=== PATIENT | male | born 1935 | race Caucasian/White ===

== ENCOUNTER 2021-07-14 09:37 | Inpatient (IN) | payer MEDICARE, OTHER ==
[~2021-07-14] VITALS: Ht 175.3 cm; Wt 82.3 kg
[2021-07-14 10:04] LABS: COVID AG,FIA SOURCE NASAL SWAB
[2021-07-14 10:10] LABS: BASOPHILS % (AUTO) 0.8 % (0.0-2.0); HEMATOCRIT 44.8 % (41-53); HEMOGLOBIN 15.1 g/dL (13.5-17.5); LYMPHOCYTES # (AUTO) 1.6 K/uL (1.0-4.8); LYMPHOCYTES % (AUTO) 22.5 % (22.0-44.0); MEAN CORPUSCULAR HEMOGLOBIN 28.9 pg (26.0-34.0); MEAN CORPUSCULAR HGB CONC 33.6 G/dL (31.0-37.0); MEAN CORPUSCULAR VOLUME 86 fL (80-100); MONOCYTES # (AUTO) 0.4 K/uL (0.1-1.0); MONOCYTES % (AUTO) 5.1 % (2.0-9.0); NEUTROPHILS # (AUTO) 4.9 K/uL (1.8-7.7); NEUTROPHILS % (AUTO) 69.6 % (40.0-70.0); PLATELET COUNT (AUTO) 311 K/uL (150-450); RED BLOOD CELL COUNT(AUTO) 5.23 MIL/uL (4.50-5.90); RED CELL DISTRIBUTION WIDTH 15.5 % (11.5-14.5)
[2021-07-14 10:17] LABS: ANION GAP 13 mmol/L (8-16); CALCIUM, TOTAL 9.1 mg/dL (8.8-10.5); CARBON DIOXIDE 22 mmol/L (22-29); CHLORIDE 101 mmol/L (98-107); CREATININE 1.16 mg/dL (0.60-1.30); GLOMERULAR FILTR. RATE CALC 59 mL/min (>60); GLUCOSE,RANDOM 215 mg/dL (70-110); POTASSIUM 3.6 mmol/L (3.5-5.1); SODIUM SERUM 136 mmol/L (136-145); UREA NITROGEN, BLOOD 25 mg/dL (7-18)
[2021-07-14 10:32] LABS: ALANINE AMINOTRANSFERASE 18 U/L (12-78); ALBUMIN 4.1 g/dL (3.4-5.0); ALKALINE PHOSPHATASE 72 U/L (46-116); ASPARTATE AMINOTRANSFERASE 17 U/L (15-37); BILIRUBIN,TOTAL 0.6 mg/dL (0.1-1.0); FREE T4 (FREE THYROXINE) 1.26 ng/dL (0.76-1.46); THYROID STIMULATING HORMONE 3.45 uIU/mL (0.36-3.74); TOTAL PROTEIN, SERUM 8.3 g/dL (6.4-8.2)
[2021-07-14 11:14] LABS: APPEARANCE,URINE CLEAR (CLEAR); BILIRUBIN,URINE NEGATIVE (NEGATIVE); GLUCOSE, URINE (UA) >=1000 mg/dL (NEGATIVE); KETONES,URINE 15 mg/dL (NEGATIVE); LEUKOCYTE ESTERASE ,URINE NEGATIVE (NEGATIVE); NITRATE,URINE NEGATIVE (NEGATIVE); OCCULT BLOOD,URINE NEGATIVE (NEGATIVE); PROTEIN,URINE NEGATIVE (NEGATIVE); UROBILINOGEN,URINE 0.2 mg/dL (<=1.0)
[2021-07-14 11:20] LABS: AMPHET/METH SCREEN,URINE NEGATIVE (NEGATIVE); BARBITURATE SCREEN, URINE NEGATIVE (NEGATIVE); BENZODIAZEPINES SCREEN,URINE NEGATIVE (NEGATIVE); CANNABINOID SCREEN,URINE NEGATIVE (NEGATIVE); COCAINE SCREEN,URINE NEGATIVE (NEGATIVE); METHADONE SCREEN, URINE NEGATIVE (NEGATIVE); OPIATE SCREEN,URINE NEGATIVE (NEGATIVE)
[2021-07-14 11:26] LABS: PHENCYCLIDINE SCREEN,URINE NEGATIVE (NEGATIVE)
[2021-07-14 11:38] LABS: BACTERIA,URINE None Seen /HPF (None Seen); RBC,URINE None Seen /HPF (0-2); SQUAMOUS EPITHELIAL CELL,UR Few /LPF (None Seen); WBC,URINE 0-2 /HPF (0-5)
[2021-07-14] MEDS ORDERED: ZOLPIDEM TARTRATE 10 MG TABLET PO PRN (15:15)
[2021-07-14] MEDS ORDERED: GuaiFENesin/D-METHORPHAN [SUGAR-FREE] 200-20MG/10 ML SYRUP UDCUP PO PRN ×2 (15:15→15:30)
[2021-07-14] MEDS ORDERED: TUBERCULIN, PURIFIED PROTEIN DERIVATIVE 5 TU/0.1 ML SYRINGE ID ONE (15:15)
[2021-07-14] MEDS ORDERED: PROMETHAZINE HCL 25 MG TABLET PO PRN ×2 (15:15)
[2021-07-14] MEDS ORDERED: HydrOXYzine PAMOATE 50 MG CAPSULE PO PRN (15:15)
[2021-07-14] MEDS ORDERED: CYANOCOBALAMIN 1,000 MCG/ML VIAL IM ONE (15:30)
[2021-07-14] MEDS ORDERED: LOPERAMIDE HCL 2 MG CAPSULE PO PRN (15:30)
[2021-07-14] MEDS ORDERED: DEXTROSE 50%-WATER 25 GM/50 ML SYRINGE IVP PRN (17:45)
[2021-07-14] MEDS ORDERED: PNEUMOCOCCAL VACCINE POLYVALENT 0.5 ML VIAL [PPSV23] IM. ONE (17:45)
[2021-07-14] MEDS ORDERED: INFLUENZA VIRUS VACCINE QVS 2021-22 (6MO+)/PF 60 MCG/0.5 ML SYRINGE IM. ONE (17:45)
[2021-07-14 17:59] VITALS: BP 138/87
[2021-07-14 18:16] LABS: GLUCOMETER DEV NAME(LOC) 3E.C; GLUCOSE,POINT OF CARE 135 MG/DL (70-110)
[2021-07-14] MEDS: THIAMINE 100 MG TABLET PO SCH (18:27)
[2021-07-14] MEDS: LURASIDONE HCL 20 MG TABLET PO SCH (18:27)
[2021-07-14] MEDS: MELATONIN 5 MG TABLET PO SCH (20:56)
[2021-07-14] MEDS: HydrOXYzine PAMOATE 50 MG CAPSULE PO PRN (20:56)
[2021-07-14] MEDS ORDERED: THIAMINE 100 MG TABLET PO SCH (21:00)
[2021-07-14 21:06] LABS: GLUCOMETER DEV NAME(LOC) 3E.C; GLUCOSE,POINT OF CARE 226 MG/DL (70-110)
[2021-07-14] MEDS: INSULIN LISPRO 100 UNITS/ML SQ PRN (21:16)
[2021-07-15 06:07] LABS: GLUCOMETER DEV NAME(LOC) 3E.C; GLUCOSE,POINT OF CARE 150 MG/DL (70-110)
[2021-07-15] MEDS: INSULIN LISPRO 100 UNITS/ML SQ PRN ×3 (07:13→20:58)
[2021-07-15] MEDS: LORazepam 0.5 MG TABLET PO PRN (07:58)
[2021-07-15] MEDS: MULTIVITAMINS WITH MINERALS, THERAPEUTIC TABLET PO SCH (07:59)
[2021-07-15] MEDS: FOLIC ACID 1 MG TABLET PO SCH (08:00)
[2021-07-15] MEDS: LURASIDONE HCL 20 MG TABLET PO PRN (08:00)
[2021-07-15] MEDS: HydrOXYzine PAMOATE 50 MG CAPSULE PO PRN (08:00)
[2021-07-15] MEDS: OMEGA-3/DHA/EPA/FISH OIL 1,000 MG CAPSULE PO SCH (08:00)
[2021-07-15] MEDS: THIAMINE 100 MG TABLET PO SCH ×2 (08:00→16:43)
[2021-07-15] MEDS ORDERED: FOLIC ACID 1 MG TABLET PO SCH (09:00)
[2021-07-15] MEDS ORDERED: MULTIVITAMINS WITH MINERALS, THERAPEUTIC TABLET PO SCH (09:00)
[2021-07-15 09:21] LABS: HEMOGLOBIN A1C 8.3 % (3.8-5.6)
[2021-07-15 09:42] LABS: CHOL/HDL RATIO 2.9 (4.2-7.3); FREE T4 (FREE THYROXINE) 1.21 ng/dL (0.76-1.46); THYROID STIMULATING HORMONE 2.12 uIU/mL (0.36-3.74)
[2021-07-15] MEDS: FAMOTIDINE 20 MG TABLET PO SCH (10:14)
[2021-07-15] MEDS: TELMISARTAN 40 MG TABLET PO SCH (10:14)
[2021-07-15] MEDS: NIFEdipine 30 MG ER TABLET PO SCH (10:14)
[2021-07-15] MEDS: IBUPROFEN 800 MG TABLET PO PRN (12:01)
[2021-07-15 16:08] VITALS: BP 127/78
[2021-07-15] MEDS: LURASIDONE HCL 20 MG TABLET PO SCH (16:43)
[2021-07-15 17:01] LABS: GLUCOMETER DEV NAME(LOC) 3E.C; GLUCOSE,POINT OF CARE 260 MG/DL (70-110)
[2021-07-15] MEDS: MELATONIN 5 MG TABLET PO SCH (20:54)
[2021-07-15 21:16] LABS: GLUCOMETER DEV NAME(LOC) 3E.C; GLUCOSE,POINT OF CARE 191 MG/DL (70-110)
[2021-07-15] MEDS ORDERED: LURASIDONE HCL 40 MG TABLET PO PRN (23:15)
[2021-07-15] MEDS ORDERED: LURASIDONE HCL 20 MG TABLET PO PRN (23:15)
[2021-07-16 06:06] LABS: GLUCOMETER DEV NAME(LOC) 3E.C; GLUCOSE,POINT OF CARE 241 MG/DL (70-110)
[2021-07-16] MEDS: INSULIN LISPRO 100 UNITS/ML SQ PRN ×3 (07:01→16:31)
[2021-07-16 08:00] VITALS: BP 103/75
[2021-07-16] MEDS: LURASIDONE HCL 20 MG TABLET PO PRN (09:15)
[2021-07-16] MEDS: NIFEdipine 30 MG ER TABLET PO SCH (09:15)
[2021-07-16] MEDS: THIAMINE 100 MG TABLET PO SCH ×2 (09:15→16:20)
[2021-07-16] MEDS: HydrOXYzine PAMOATE 50 MG CAPSULE PO PRN (09:15)
[2021-07-16] MEDS: MULTIVITAMINS WITH MINERALS, THERAPEUTIC TABLET PO SCH (09:15)
[2021-07-16] MEDS: TELMISARTAN 40 MG TABLET PO SCH (09:15)
[2021-07-16] MEDS: OMEGA-3/DHA/EPA/FISH OIL 1,000 MG CAPSULE PO SCH (09:15)
[2021-07-16] MEDS: LORazepam 0.5 MG TABLET PO PRN (09:15)
[2021-07-16] MEDS: FOLIC ACID 1 MG TABLET PO SCH (09:15)
[2021-07-16] MEDS: IBUPROFEN 800 MG TABLET PO PRN (09:16)
[2021-07-16] MEDS: FAMOTIDINE 20 MG TABLET PO SCH (09:16)
[2021-07-16 11:51] LABS: GLUCOMETER DEV NAME(LOC) 3E.C; GLUCOSE,POINT OF CARE 230 MG/DL (70-110)
[2021-07-16 16:03] VITALS: BP 153/74
[2021-07-16] MEDS ORDERED: OMEG-108 PO (16:07)
[2021-07-16] MEDS ORDERED: LURA40TA2 PO (16:07)
[2021-07-16] MEDS ORDERED: MELA5TAB40 PO (16:07)
[2021-07-16 16:41] LABS: GLUCOMETER DEV NAME(LOC) 3E.C; GLUCOSE,POINT OF CARE 270 MG/DL (70-110)
[2021-07-16] MEDS ORDERED: LURASIDONE HCL 40 MG TABLET PO SCH (17:30)
== END 2021-07-16 18:22 | disposition home or self-care (01) | DRG 885 ==
LOC: EMS 09:37 → 3EC 15:12
PROVIDERS: ADMIT Psychiatry & Neurology Psychiatry; ATTEND Psychiatry & Neurology Psychiatry
DX: F25.9 Schizoaffective disorder, unspecified (principal); L03.90 Cellulitis, unspecified; E11.9 Type 2 diabetes mellitus without complications; E78.5 Hyperlipidemia, unspecified; F03.90 Unspecified dementia, unspecified severity, without behavioral disturbance, psychotic disturbance, mood disturbance, and anxiety; I10 Essential (primary) hypertension; Z20.822 Contact with and (suspected) exposure to COVID-19; Z63.9 Problem related to primary support group, unspecified; Z65.3 Problems related to other legal circumstances; Z88.0 Allergy status to penicillin; Z59.9 Problem related to housing and economic circumstances, unspecified; Z55.9 Problems related to education and literacy, unspecified
CPT/HCPCS: 80053; 80061; 81001; 82962; 83036; 84439; 84443; 85025; 86592; 90686; 90732; 99285; G0480; J3420; Q9967

== ENCOUNTER 2021-11-29 12:36 | Inpatient (IN) | payer OTHER ==
[~2021-11-29] VITALS: Ht 175.3 cm; Wt 82.7 kg
[~2021-11-29 12:36] MED LIST: LURA40TA2 PO; MELA5TAB40 PO; OMEG-108 PO
[2021-11-29 14:38] LABS: BASOPHILS % (AUTO) 0.7 % (0.0-2.0); EOSINOPHILS % (AUTO) 0.3 % (1.0-6.0); HEMATOCRIT 45.5 % (41-53); HEMOGLOBIN 14.9 g/dL (13.5-17.5); LYMPHOCYTES # (AUTO) 2.1 K/uL (1.0-4.8); LYMPHOCYTES % (AUTO) 33.5 % (22.0-44.0); MEAN CORPUSCULAR HEMOGLOBIN 28.5 pg (26.0-34.0); MEAN CORPUSCULAR HGB CONC 32.8 G/dL (31.0-37.0); MEAN CORPUSCULAR VOLUME 87 fL (80-100); MONOCYTES # (AUTO) 0.4 K/uL (0.1-1.0); MONOCYTES % (AUTO) 6.9 % (2.0-9.0); NEUTROPHILS # (AUTO) 3.6 K/uL (1.8-7.7); NEUTROPHILS % (AUTO) 58.6 % (40.0-70.0); PLATELET COUNT (AUTO) 224 K/uL (150-450); RED BLOOD CELL COUNT(AUTO) 5.24 MIL/uL (4.50-5.90); RED CELL DISTRIBUTION WIDTH 15.3 % (11.5-14.5)
[2021-11-29 14:39] LABS: COVID AG,FIA SOURCE NASOPHARYNGEAL
[2021-11-29 14:49] LABS: ANION GAP 14 mmol/L (8-16); CALCIUM, TOTAL 9.6 mg/dL (8.8-10.5); CARBON DIOXIDE 25 mmol/L (22-29); CHLORIDE 101 mmol/L (98-107); CREATININE 1.31 mg/dL (0.60-1.30); GLUCOSE,RANDOM 194 mg/dL (70-110); POTASSIUM 3.5 mmol/L (3.5-5.1); SODIUM SERUM 140 mmol/L (136-145); UREA NITROGEN, BLOOD 29 mg/dL (7-18)
[2021-11-29 14:51] LABS: GLOMERULAR FILTR. RATE CALC 52 mL/min (>60)
[2021-11-29 15:00] LABS: ALANINE AMINOTRANSFERASE 26 U/L (12-78); ALKALINE PHOSPHATASE 68 U/L (46-116); ASPARTATE AMINOTRANSFERASE 29 U/L (15-37); BILIRUBIN,TOTAL 0.6 mg/dL (0.1-1.0); THYROID STIMULATING HORMONE 1.33 uIU/mL (0.36-3.74); TOTAL PROTEIN, SERUM 8.2 g/dL (6.4-8.2)
[2021-11-29 16:59] LABS: APPEARANCE,URINE CLEAR (CLEAR); BILIRUBIN,URINE NEGATIVE (NEGATIVE); GLUCOSE, URINE (UA) >=1000 mg/dL (NEGATIVE); LEUKOCYTE ESTERASE ,URINE NEGATIVE (NEGATIVE); NITRATE,URINE NEGATIVE (NEGATIVE); OCCULT BLOOD,URINE TRACE (NEGATIVE); PROTEIN,URINE NEGATIVE (NEGATIVE); SPECIFIC GRAVITIY, URINE 1.027 (1.003-1.030); UROBILINOGEN,URINE <=1.0 mg/dL (<=1.0)
[2021-11-29 17:06] LABS: AMPHET/METH SCREEN,URINE NEGATIVE (NEGATIVE); BARBITURATE SCREEN, URINE NEGATIVE (NEGATIVE); BENZODIAZEPINES SCREEN,URINE NEGATIVE (NEGATIVE); CANNABINOID SCREEN,URINE NEGATIVE (NEGATIVE); COCAINE SCREEN,URINE NEGATIVE (NEGATIVE); METHADONE SCREEN, URINE NEGATIVE (NEGATIVE); OPIATE SCREEN,URINE NEGATIVE (NEGATIVE)
[2021-11-29 17:07] LABS: PHENCYCLIDINE SCREEN,URINE NEGATIVE (NEGATIVE)
[2021-11-29] MEDS ORDERED: PRAV40TA4 PO (17:26)
[2021-11-29] MEDS ORDERED: PIOG45TA64 PO (17:26)
[2021-11-29] MEDS ORDERED: NIFE30TA98 PO (17:26)
[2021-11-29] MEDS ORDERED: TELM40TA8 PO (17:26)
[2021-11-29] MEDS ORDERED: FAMO40TA7 PO (17:26)
[2021-11-29] MEDS ORDERED: QUET25TA36 PO (17:26)
[2021-11-29] MEDS ORDERED: 0.9% SODIUM CHLORIDE 10 ML SYRINGE IVP PRN (17:30)
[2021-11-29] MEDS ORDERED: ONDANSETRON HCL 4 MG/2 ML VIAL IVP PRN ×2 (17:30→22:00)
[2021-11-29] MEDS ORDERED: ACETAMINOPHEN 325 MG TABLET PO PRN ×2 (17:30→22:00)
[2021-11-29 17:35] LABS: BACTERIA,URINE Rare /HPF (None Seen); RBC,URINE 0-2 /HPF (0-2); SQUAMOUS EPITHELIAL CELL,UR Rare /LPF (None Seen); WBC,URINE 0-2 /HPF (0-5)
[2021-11-29] MEDS ORDERED: MAGNESIUM HYDROXIDE SUSPENSION 30 ML UDCUP PO PRN (22:00)
[2021-11-29] MEDS ORDERED: BISACODYL 10 MG RECTAL RECTAL SUPPOSITORY PR PRN (22:00)
[2021-11-29] MEDS ORDERED: HYDROCODONE/ACETAMINOPHEN 5-325 MG TABLET PO PRN (22:00)
[2021-11-29] MEDS ORDERED: MORPHINE SULFATE 2 MG/ML SYRINGE IVP PRN (22:00)
[2021-11-29] MEDS ORDERED: ALBUTEROL SULFATE 2.5 MG/0.5 ML NEB SOLUTION NEB PRN (22:00)
[2021-11-29] MEDS ORDERED: IPRATROPIUM BROMIDE 0.5 MG/2.5 ML NEB SOLUTION NEB PRN (22:00)
[2021-11-29] MEDS ORDERED: ZOLPIDEM TARTRATE 5 MG TABLET PO PRN (22:00)
[2021-11-29] MEDS ORDERED: HydrALAZINE HCL 20 MG/ML VIAL IVP PRN (22:15)
[2021-11-29] MEDS ORDERED: PANTOPRAZOLE SODIUM 40 MG DR TABLET PO ONE (22:30)
[2021-11-29] MEDS: HEPARIN SODIUM,PORCINE 5,000 UNITS/ML VIAL SQ SCH (23:10)
[2021-11-30] MEDS: HEPARIN SODIUM,PORCINE 5,000 UNITS/ML VIAL SQ SCH ×2 (08:00→15:55)
[2021-11-30] MEDS: DOCUSATE SODIUM 100 MG CAPSULE PO SCH ×3 (08:12→22:28)
[2021-11-30] MEDS: PIOGLITAZONE HCL 45 MG TABLET PO SCH (08:30)
[2021-11-30] MEDS: OMEGA-3/DHA/EPA/FISH OIL 1,000 MG CAPSULE PO SCH (08:31)
[2021-11-30] MEDS: TELMISARTAN 40 MG TABLET PO SCH (08:32)
[2021-11-30] MEDS: NIFEdipine 30 MG ER TABLET PO SCH (08:32)
[2021-11-30] MEDS ORDERED: PANTOPRAZOLE SODIUM 40 MG/VIAL IVP SCH (09:00)
[2021-11-30] MEDS ORDERED: CloNIDine HCL 0.1 MG TABLET PO ONE (12:00)
[2021-11-30] MEDS: LURASIDONE HCL 40 MG TABLET PO SCH (17:31)
[2021-11-30 19:11] LABS: GLUCOSE,POINT OF CARE 151 MG/DL (70-110)
[2021-11-30 20:00] VITALS: BP 97/58
[2021-11-30] MEDS: PRAVASTATIN SODIUM 40 MG TABLET PO SCH ×2 (22:23→22:29)
[2021-11-30] MEDS: QUEtiapine FUMARATE 25 MG TABLET PO SCH ×2 (22:23→22:28)
[2021-11-30] MEDS: MELATONIN 5 MG TABLET PO SCH ×2 (22:23→22:28)
[2021-12-01 05:00] VITALS: BP 127/68
[2021-12-01 08:10] VITALS: BP 122/71
[2021-12-01] MEDS: TELMISARTAN 40 MG TABLET PO SCH (09:51)
[2021-12-01] MEDS: OMEGA-3/DHA/EPA/FISH OIL 1,000 MG CAPSULE PO SCH (09:51)
[2021-12-01] MEDS: PIOGLITAZONE HCL 45 MG TABLET PO SCH (09:51)
[2021-12-01] MEDS: NIFEdipine 30 MG ER TABLET PO SCH (09:51)
[2021-12-01] MEDS: HEPARIN SODIUM,PORCINE 5,000 UNITS/ML VIAL SQ SCH ×4 (09:52→23:53)
[2021-12-01 16:12] VITALS: BP 108/91
[2021-12-01] MEDS: LURASIDONE HCL 40 MG TABLET PO SCH (18:57)
[2021-12-01 19:30] VITALS: BP 131/69
[2021-12-01] MEDS: DOCUSATE SODIUM 100 MG CAPSULE PO SCH (20:43)
[2021-12-02 04:15] VITALS: BP 129/75
[2021-12-02 07:56] VITALS: BP 139/59
[2021-12-02] MEDS: NIFEdipine 30 MG ER TABLET PO SCH (08:33)
[2021-12-02] MEDS: DOCUSATE SODIUM 100 MG CAPSULE PO SCH ×2 (08:33→21:00)
[2021-12-02] MEDS: TELMISARTAN 40 MG TABLET PO SCH (08:33)
[2021-12-02] MEDS: PIOGLITAZONE HCL 45 MG TABLET PO SCH (08:33)
[2021-12-02] MEDS: HEPARIN SODIUM,PORCINE 5,000 UNITS/ML VIAL SQ SCH ×3 (08:34→23:03)
[2021-12-02] MEDS: OMEGA-3/DHA/EPA/FISH OIL 1,000 MG CAPSULE PO SCH (08:40)
[2021-12-02 11:18] LABS: COVID AG,FIA SOURCE NASAL SWAB
[2021-12-02 16:35] VITALS: BP 117/62
[2021-12-02] MEDS: LURASIDONE HCL 40 MG TABLET PO SCH (17:13)
[2021-12-02 19:30] VITALS: BP 133/63
[2021-12-02] MEDS: QUEtiapine FUMARATE 25 MG TABLET PO SCH (21:00)
[2021-12-02] MEDS: MELATONIN 5 MG TABLET PO SCH (21:53)
[2021-12-02] MEDS: PRAVASTATIN SODIUM 40 MG TABLET PO SCH (21:53)
[2021-12-02 22:46] LABS: GLUCOMETER DEV NAME(LOC) 6N.2; GLUCOSE,POINT OF CARE 182 MG/DL (70-110)
[2021-12-03 04:00] VITALS: BP 143/71
[2021-12-03 07:19] VITALS: BP 132/64
[2021-12-03] MEDS ORDERED: DEXTROSE 50%-WATER 25 GM/50 ML SYRINGE IVP PRN (08:00)
[2021-12-03] MEDS: HEPARIN SODIUM,PORCINE 5,000 UNITS/ML VIAL SQ SCH ×3 (08:00→23:33)
[2021-12-03] MEDS: NIFEdipine 30 MG ER TABLET PO SCH (08:27)
[2021-12-03] MEDS: DOCUSATE SODIUM 100 MG CAPSULE PO SCH ×2 (08:27→21:00)
[2021-12-03] MEDS: TELMISARTAN 40 MG TABLET PO SCH (08:27)
[2021-12-03] MEDS: OMEGA-3/DHA/EPA/FISH OIL 1,000 MG CAPSULE PO SCH (08:27)
[2021-12-03] MEDS: PIOGLITAZONE HCL 45 MG TABLET PO SCH (08:27)
[2021-12-03] MEDS: INSULIN LISPRO 100 UNITS/ML SQ PRN ×3 (12:16→21:35)
[2021-12-03 13:21] LABS: GLUCOMETER DEV NAME(LOC) 6N.2; GLUCOSE,POINT OF CARE 199 MG/DL (70-110)
[2021-12-03 15:55] VITALS: BP 142/68
[2021-12-03] MEDS ORDERED: LURASIDONE HCL 80 MG TABLET PO SCH (18:00)
[2021-12-03 19:36] VITALS: BP 111/57
[2021-12-03] MEDS: QUEtiapine FUMARATE 25 MG TABLET PO SCH (21:00)
[2021-12-03] MEDS ORDERED: BENZONATATE 100 MG CAPSULE PO PRN (21:00)
[2021-12-03] MEDS: MELATONIN 5 MG TABLET PO SCH (21:24)
[2021-12-03] MEDS: PRAVASTATIN SODIUM 40 MG TABLET PO SCH (21:24)
[2021-12-03 23:06] LABS: GLUCOMETER DEV NAME(LOC) 6N.1; GLUCOSE,POINT OF CARE 163 MG/DL (70-110)
[2021-12-03 23:36] LABS: GLUCOMETER DEV NAME(LOC) 6N.2; GLUCOSE,POINT OF CARE 184 MG/DL (70-110)
[2021-12-04 04:28] VITALS: BP 128/67
[2021-12-04] MEDS: INSULIN LISPRO 100 UNITS/ML SQ PRN ×3 (06:11→17:53)
[2021-12-04 06:46] LABS: GLUCOMETER DEV NAME(LOC) 6N.2; GLUCOSE,POINT OF CARE 168 MG/DL (70-110)
[2021-12-04] MEDS: NIFEdipine 30 MG ER TABLET PO SCH (08:01)
[2021-12-04] MEDS: TELMISARTAN 40 MG TABLET PO SCH (08:01)
[2021-12-04] MEDS: PIOGLITAZONE HCL 45 MG TABLET PO SCH (08:01)
[2021-12-04] MEDS: HEPARIN SODIUM,PORCINE 5,000 UNITS/ML VIAL SQ SCH ×2 (08:01→16:00)
[2021-12-04] MEDS: OMEGA-3/DHA/EPA/FISH OIL 1,000 MG CAPSULE PO SCH (08:01)
[2021-12-04] MEDS: DOCUSATE SODIUM 100 MG CAPSULE PO SCH (08:01)
[2021-12-04 13:06] LABS: GLUCOMETER DEV NAME(LOC) 6N.1; GLUCOSE,POINT OF CARE 196 MG/DL (70-110)
[2021-12-04] MEDS ORDERED: LURA80TA2 PO (17:06)
[2021-12-05 06:27] LABS: GLUCOMETER DEV NAME(LOC) 6N.2; GLUCOSE,POINT OF CARE 189 MG/DL (70-110)
== END 2021-12-04 18:16 | disposition home or self-care (01) | DRG 179 ==
LOC: EMS 12:37 → 6N 11-30 18:19 → 6S 12-03 00:17
PROVIDERS: ADMIT Hospitalist; ATTEND Hospitalist
DX: U07.1 COVID-19 (principal); I10 Essential (primary) hypertension; E11.9 Type 2 diabetes mellitus without complications; E78.5 Hyperlipidemia, unspecified; F02.80 Dementia in other diseases classified elsewhere, unspecified severity, without behavioral disturbance, psychotic disturbance, mood disturbance, and anxiety; F20.9 Schizophrenia, unspecified; G30.9 Alzheimer's disease, unspecified; Z78.9 Other specified health status; Z88.0 Allergy status to penicillin
CPT/HCPCS: 80053; 81001; 82962; 84443; 85025; 99285; G0480; J0360; J1644; Q9967

== ENCOUNTER 2022-04-17 09:07 | Inpatient (IN) | payer MEDICARE, OTHER ==
[~2022-04-17] VITALS: Ht 175.3 cm; Wt 79.6 kg
[~2022-04-17 09:07] MED LIST changes: +FAMO40TA7 PO; -LURA40TA2 PO; +LURA80TA2 PO; +NIFE30TA98 PO; -OMEG-108 PO; +OMEG-135 PO; +PIOG45TA64 PO; +PRAV40TA4 PO; +QUET25TA36 PO; +TELM40TA8 PO
[2022-04-17 10:32] LABS: COVID AG,FIA SOURCE NASOPHARYNGEAL
[2022-04-17 10:36] LABS: BASOPHILS % (AUTO) 0.9 % (0.0-2.0); EOSINOPHILS % (AUTO) 0.9 % (1.0-6.0); HEMATOCRIT 42.6 % (41-53); LYMPHOCYTES # (AUTO) 0.8 K/uL (1.0-4.8); LYMPHOCYTES % (AUTO) 13.3 % (22.0-44.0); MEAN CORPUSCULAR HEMOGLOBIN 29.3 pg (26.0-34.0); MEAN CORPUSCULAR HGB CONC 32.8 G/dL (31.0-37.0); MEAN CORPUSCULAR VOLUME 89 fL (80-100); MONOCYTES # (AUTO) 0.4 K/uL (0.1-1.0); MONOCYTES % (AUTO) 6.5 % (2.0-9.0); NEUTROPHILS # (AUTO) 4.5 K/uL (1.8-7.7); NEUTROPHILS % (AUTO) 78.4 % (40.0-70.0); PLATELET COUNT (AUTO) 246 K/uL (150-450); RED BLOOD CELL COUNT(AUTO) 4.77 MIL/uL (4.50-5.90)
[2022-04-17 11:07] LABS: ANION GAP 8 mmol/L (8-16); CALCIUM, TOTAL 9.1 mg/dL (8.8-10.5); CARBON DIOXIDE 27 mmol/L (22-29); CHLORIDE 102 mmol/L (98-107); CREATININE 1.15 mg/dL (0.60-1.30); GLUCOSE,RANDOM 240 mg/dL (70-110); POTASSIUM 3.5 mmol/L (3.5-5.1); SODIUM SERUM 137 mmol/L (136-145); UREA NITROGEN, BLOOD 24 mg/dL (7-18)
[2022-04-17 11:09] LABS: GLOMERULAR FILTR. RATE CALC 60 mL/min (>60)
[2022-04-17 11:21] LABS: ALANINE AMINOTRANSFERASE 14 U/L (12-78); ALBUMIN 3.8 g/dL (3.4-5.0); ALKALINE PHOSPHATASE 78 U/L (46-116); ASPARTATE AMINOTRANSFERASE 13 U/L (15-37); BILIRUBIN,TOTAL 0.4 mg/dL (0.1-1.0); LIPASE 86 U/L (73-393); TOTAL PROTEIN, SERUM 7.4 g/dL (6.4-8.2)
[2022-04-17 11:23] LABS: LACTIC ACID 3.1 mmol/L (0.4-2.0)
[2022-04-17] MEDS ORDERED: PERTUSS(ACELL),DIPH,TET VAC/PF 0.5 ML SYRINGE IM. ONE (11:30)
[2022-04-17] MEDS ORDERED: BACITRACIN 0.9 GM PACKET OINTMENT TP ONE (11:30)
[2022-04-17] MEDS ORDERED: QUEtiapine FUMARATE 100 MG TABLET PO PRN (11:45)
[2022-04-17] MEDS ORDERED: ZOLPIDEM TARTRATE 10 MG TABLET PO PRN (11:45)
[2022-04-17] MEDS ORDERED: LORazepam 2 MG TABLET PO PRN (11:45)
[2022-04-17 12:45] LABS: APPEARANCE,URINE CLEAR (CLEAR); BILIRUBIN,URINE NEGATIVE (NEGATIVE); GLUCOSE, URINE (UA) >=1000 mg/dL (NEGATIVE); LEUKOCYTE ESTERASE ,URINE NEGATIVE (NEGATIVE); NITRATE,URINE NEGATIVE (NEGATIVE); OCCULT BLOOD,URINE NEGATIVE (NEGATIVE); PH,URINE 7.5 (5.0-8.0); PROTEIN,URINE NEGATIVE (NEGATIVE); SPECIFIC GRAVITIY, URINE 1.026 (1.003-1.030); UROBILINOGEN,URINE <=1.0 mg/dL (<=1.0)
[2022-04-17 12:50] LABS: AMPHET/METH SCREEN,URINE NEGATIVE (NEGATIVE); BARBITURATE SCREEN, URINE NEGATIVE (NEGATIVE); BENZODIAZEPINES SCREEN,URINE NEGATIVE (NEGATIVE); CANNABINOID SCREEN,URINE NEGATIVE (NEGATIVE); COCAINE SCREEN,URINE NEGATIVE (NEGATIVE); METHADONE SCREEN, URINE NEGATIVE (NEGATIVE); OPIATE SCREEN,URINE NEGATIVE (NEGATIVE)
[2022-04-17 12:51] LABS: PHENCYCLIDINE SCREEN,URINE NEGATIVE (NEGATIVE)
[2022-04-17 13:08] LABS: BACTERIA,URINE None Seen /HPF (None Seen); RBC,URINE None Seen /HPF (0-2); SQUAMOUS EPITHELIAL CELL,UR None Seen /LPF (None Seen); WBC,URINE None Seen /HPF (0-5)
[2022-04-18 01:25] LABS: GLUCOMETER DEV NAME(LOC) PVLAB.35; GLUCOSE,POINT OF CARE 129 MG/DL (70-110)
[2022-04-18 22:17] LABS: GLUCOMETER DEV NAME(LOC) PVLAB.35; GLUCOSE,POINT OF CARE 161 MG/DL (70-110)
[2022-04-20 08:31] LABS: GLUCOMETER DEV NAME(LOC) PVLAB.35; GLUCOSE,POINT OF CARE 274 MG/DL (70-110)
[2022-04-20 14:56] VITALS: BP 159/75
[2022-04-20 16:23] VITALS: BP 130/76
[2022-04-20 16:31] VITALS: BP 159/75
[2022-04-20 16:46] VITALS: BP 156/95
[2022-04-20] MEDS: PRAVASTATIN SODIUM 40 MG TABLET PO SCH (21:36)
[2022-04-21] MEDS ORDERED: MAGNESIUM HYDROXIDE SUSPENSION 30 ML UDCUP PO PRN (07:15)
[2022-04-21] MEDS ORDERED: ONDANSETRON HCL 4 MG TABLET PO PRN (07:15)
[2022-04-21] MEDS ORDERED: PETROLATUM,WHITE 28 GM JELLY TP PRN (07:15)
[2022-04-21] MEDS ORDERED: ALBUTEROL SULFATE HFA 90 MCG/PUFF 8 GM INHALER IH PRN (07:15)
[2022-04-21] MEDS ORDERED: GuaiFENesin/D-METHORPHAN [SUGAR-FREE] 200-20MG/10 ML SYRUP UDCUP PO PRN (07:15)
[2022-04-21] MEDS ORDERED: LOPERAMIDE HCL 2 MG CAPSULE PO PRN (07:15)
[2022-04-21] MEDS ORDERED: CloNIDine HCL 0.1 MG TABLET PO PRN (07:15)
[2022-04-21] MEDS ORDERED: MAG HYDROX/AL HYDROX/SIMETH ES 30 ML SUSPENSION UDCUP PO PRN (07:15)
[2022-04-21] MEDS ORDERED: DOCUSATE SODIUM 100 MG CAPSULE PO PRN (07:15)
[2022-04-21] MEDS ORDERED: ACETAMINOPHEN 325 MG TABLET PO PRN (07:15)
[2022-04-21] MEDS ORDERED: IBUPROFEN 400 MG TABLET PO PRN (07:15)
[2022-04-21] MEDS ORDERED: NICOTINE 14 MG/24 HOUR PATCH TD PRN (07:15)
[2022-04-21 08:21] VITALS: BP 140/92
[2022-04-21] MEDS: TELMISARTAN 40 MG TABLET PO SCH (09:33)
[2022-04-21] MEDS: PIOGLITAZONE HCL 45 MG TABLET PO SCH (09:33)
[2022-04-21] MEDS: FAMOTIDINE 20 MG TABLET PO SCH (09:39)
[2022-04-21] MEDS: NIFEdipine 30 MG ER TABLET PO SCH (09:40)
[2022-04-21] MEDS: DIVALPROEX SODIUM 250 MG DR TABLET PO SCH (16:38)
[2022-04-21] MEDS: PRAVASTATIN SODIUM 40 MG TABLET PO SCH (20:29)
[2022-04-21 20:48] VITALS: BP 144/92
[2022-04-22 06:41] LABS: GLUCOMETER DEV NAME(LOC) BV2S.; GLUCOSE,POINT OF CARE 227 MG/DL (70-110)
[2022-04-22 08:43] VITALS: BP 130/68
[2022-04-22] MEDS: PIOGLITAZONE HCL 45 MG TABLET PO SCH (09:00)
[2022-04-22] MEDS: NIFEdipine 30 MG ER TABLET PO SCH (09:01)
[2022-04-22] MEDS: TELMISARTAN 40 MG TABLET PO SCH (09:01)
[2022-04-22] MEDS: DIVALPROEX SODIUM 250 MG DR TABLET PO SCH ×2 (09:01→16:36)
[2022-04-22] MEDS: FAMOTIDINE 20 MG TABLET PO SCH (09:07)
[2022-04-22 16:26] LABS: GLUCOMETER DEV NAME(LOC) POC.BV
[2022-04-22 20:18] VITALS: BP 136/82
[2022-04-22] MEDS: PRAVASTATIN SODIUM 40 MG TABLET PO SCH (20:31)
[2022-04-23 06:41] LABS: GLUCOMETER DEV NAME(LOC) BV2S.; GLUCOSE,POINT OF CARE 194 MG/DL (70-110)
[2022-04-23 09:10] VITALS: BP 135/66
[2022-04-23] MEDS: FAMOTIDINE 20 MG TABLET PO SCH (09:30)
[2022-04-23] MEDS: TELMISARTAN 40 MG TABLET PO SCH (09:30)
[2022-04-23] MEDS: PIOGLITAZONE HCL 45 MG TABLET PO SCH (09:30)
[2022-04-23] MEDS: DIVALPROEX SODIUM 250 MG DR TABLET PO SCH ×2 (09:30→16:31)
[2022-04-23 14:14] VITALS: BP 165/79
[2022-04-23] MEDS: NIFEdipine 30 MG ER TABLET PO SCH (14:16)
[2022-04-23 16:51] LABS: GLUCOMETER DEV NAME(LOC) POC.BV
[2022-04-23 20:31] VITALS: BP 153/75
[2022-04-23] MEDS: PRAVASTATIN SODIUM 40 MG TABLET PO SCH (20:34)
[2022-04-24 06:16] LABS: GLUCOMETER DEV NAME(LOC) BV2S.; GLUCOSE,POINT OF CARE 211 MG/DL (70-110)
[2022-04-24 08:56] VITALS: BP 160/95
[2022-04-24] MEDS: NIFEdipine 30 MG ER TABLET PO SCH (09:03)
[2022-04-24] MEDS: DIVALPROEX SODIUM 250 MG DR TABLET PO SCH ×2 (09:03→17:05)
[2022-04-24] MEDS: FAMOTIDINE 20 MG TABLET PO SCH (09:04)
[2022-04-24] MEDS: TELMISARTAN 40 MG TABLET PO SCH (09:04)
[2022-04-24] MEDS: PIOGLITAZONE HCL 45 MG TABLET PO SCH (09:04)
[2022-04-24 20:30] VITALS: BP 144/73
[2022-04-24] MEDS: PRAVASTATIN SODIUM 40 MG TABLET PO SCH (20:31)
[2022-04-25 06:46] LABS: GLUCOMETER DEV NAME(LOC) BV2S.; GLUCOSE,POINT OF CARE 224 MG/DL (70-110)
[2022-04-25 08:13] VITALS: BP 130/60
[2022-04-25] MEDS: NIFEdipine 30 MG ER TABLET PO SCH (09:32)
[2022-04-25] MEDS: DIVALPROEX SODIUM 250 MG DR TABLET PO SCH ×2 (09:32→16:37)
[2022-04-25] MEDS: PIOGLITAZONE HCL 45 MG TABLET PO SCH (09:32)
[2022-04-25] MEDS: FAMOTIDINE 20 MG TABLET PO SCH (09:32)
[2022-04-25] MEDS: TELMISARTAN 40 MG TABLET PO SCH (09:32)
[2022-04-25] MEDS: PRAVASTATIN SODIUM 40 MG TABLET PO SCH (20:29)
[2022-04-25 21:08] VITALS: BP 153/80
[2022-04-26 06:50] LABS: GLUCOMETER DEV NAME(LOC) BV2S.; GLUCOSE,POINT OF CARE 202 MG/DL (70-110)
[2022-04-26 08:42] VITALS: BP 125/64
[2022-04-26] MEDS: FAMOTIDINE 20 MG TABLET PO SCH (08:45)
[2022-04-26] MEDS: NIFEdipine 30 MG ER TABLET PO SCH (08:46)
[2022-04-26] MEDS: PIOGLITAZONE HCL 45 MG TABLET PO SCH (08:46)
[2022-04-26] MEDS: DIVALPROEX SODIUM 250 MG DR TABLET PO SCH ×2 (08:46→16:23)
[2022-04-26] MEDS: TELMISARTAN 40 MG TABLET PO SCH (08:46)
[2022-04-26 20:05] VITALS: BP 102/76
[2022-04-26] MEDS: PRAVASTATIN SODIUM 40 MG TABLET PO SCH (20:37)
[2022-04-27 06:51] LABS: GLUCOMETER DEV NAME(LOC) BV2S.; GLUCOSE,POINT OF CARE 216 MG/DL (70-110)
[2022-04-27 08:05] VITALS: BP 123/69
[2022-04-27] MEDS: TELMISARTAN 40 MG TABLET PO SCH (09:00)
[2022-04-27] MEDS ORDERED: NIFE-40 PO (09:55)
[2022-04-27] MEDS ORDERED: PRAV40TA4 PO (09:55)
[2022-04-27] MEDS ORDERED: PIOG45TA4 PO (09:55)
[2022-04-27] MEDS ORDERED: TELM40 PO (09:55)
[2022-04-27] MEDS ORDERED: FAMO20 PO (09:55)
[2022-04-27] MEDS ORDERED: DIVA-111 PO (09:55)
[2022-04-27] MEDS: PIOGLITAZONE HCL 45 MG TABLET PO SCH (11:01)
[2022-04-27] MEDS: DIVALPROEX SODIUM 250 MG DR TABLET PO SCH (11:01)
[2022-04-27] MEDS: NIFEdipine 30 MG ER TABLET PO SCH (11:01)
[2022-04-27] MEDS: FAMOTIDINE 20 MG TABLET PO SCH (11:01)
== END 2022-04-27 14:34 | disposition home or self-care (01) | DRG 885 ==
LOC: EMS 09:18 → B2S 04-20 08:54
PROVIDERS: ADMIT Psychiatry & Neurology Psychiatry; ATTEND Psychiatry & Neurology Psychiatry
DX: F20.0 Paranoid schizophrenia (principal); F03.918 Unspecified dementia, unspecified severity, with other behavioral disturbance; Z20.822 Contact with and (suspected) exposure to COVID-19; E11.9 Type 2 diabetes mellitus without complications; E78.5 Hyperlipidemia, unspecified; I10 Essential (primary) hypertension; K21.9 Gastro-esophageal reflux disease without esophagitis; Z88.0 Allergy status to penicillin; Z79.899 Other long term (current) drug therapy
CPT/HCPCS: 71045; 80053; 81001; 82948; 82962; 83036; 83605; 83690; 84484; 85025; 90715; 93005; 99285; G0480; 36415-L1; 36415-TC